=== PATIENT | female | born 1960 | race Two or more races ===

== ENCOUNTER → 2016-12-24 | Outpatient (CLI) | payer BC ==
--- NOTE | 2016-12-25 11:45 | KCIC ---
MR of the right shoulder Indication: Shoulder pain. Bone lesion identified on x-rays. COMPARISON: Images of right shoulder radiographs from November 27, 2016. Technique: Standard multiplanar sequences are obtained. Findings: Acromioclavicular joint: Intact. Minimal undersurface protuberance of the outer clavicle. Rotator cuff: Diffuse tendinosis signal with out evidence of measurable fluid defect or rupture. Trace subdeltoid bursal fluid. Glenohumeral joint: No significant joint effusion. Mild chondromalacia. Labrum: Heterogeneous signal within the superior labrum compatible with degeneration or possible degenerative tear. Biceps tendon: Intact Bones: Geographic lesion at the humeral metaphysis measures 25 mm. Consists of prominently hyperintense T2 signal with internal punctate foci of low signal, which correlate with calcifications seen on radiograph. Margins are well-defined. Appearance is most compatible with a benign enchondroma. Soft tissue: Borderline prominent axillary lymph nodes up to 18 mm. Impression: 1. Rotator cuff tendinosis without measurable rupture. 2. Superior labral degeneration versus mild tear. 2. Borderline enlarged axillary lymph nodes. Electronically signed by: Alonzo Wong MD (12/25/2016 11:42 AM)
== END | disposition home or self-care (01) ==
LOC: KCIC MRI 15:57
PROVIDERS: ATTEND Specialist
DX: M94.211 Chondromalacia, right shoulder (principal); R93.8 Abnormal findings on diagnostic imaging of other specified body structures
CPT/HCPCS: 73221